=== PATIENT | female | born 1965 | race Caucasian/White ===

== ENCOUNTER 2016-09-23 14:46 | Inpatient (IN) | payer OTHER ==
[2016-09-23] MEDS ORDERED: DOPamine INJ PREMIX 500 ML IV SCH (18:00)
[2016-09-23 18:13] LABS: AUTOMATED NEUTROPHIL # 10.6 TH/MM3 (1.8-7.7); BASOPHIL % 0.1 % (0.0-2.0); EOSINOPHIL % 0.2 % (0.0-4.0); HEMATOCRIT 26.7 % (35.0-46.0); HEMO FLAGS DIFF FINAL; LYMPH % 16.5 % (9.0-44.0); LYMPHOCYTE # 2.4 TH/MM3 (1.0-4.8); MEAN CELL VOLUME 85.3 FL (80.0-100.0); MEAN CORPUSCULAR HEMOGLOBIN 28.2 PG (27.0-34.0); MONO % 9.2 % (0.0-8.0); PLATELET COUNT 163 TH/MM3 (150-450); RED BLOOD COUNT 3.13 MIL/MM3 (4.00-5.30); RED CELL DISTRIBUTION WIDTH 17.9 % (11.6-17.2); WHITE BLOOD COUNT 14.3 TH/MM3 (4.0-11.0)
[2016-09-23 18:16] LABS: BLOOD, URINE SMALL (NEG); GLUCOSE,URINE 1000 mg/dL (NEG); KETONE, URINE NEG (NEG); MUCUS URINE FEW /lpf (OCC); NITRITE,URINE NEG (NEG); SQUAMOUS EPITHELIAL CELL URINE 1 /hpf (0-5); URINE COLOR YELLOW (YELLW/STRAW)
[2016-09-23 18:17] LABS: COMMENT (UR) CATH-CULTURE IND; CULTURE IF INDICATED CATH CULTURE IND
[2016-09-23 18:21] LABS: APTT (PATIENT) 30.6 SEC (24.3-30.1); INTERNATIONAL NORMALIZED RATIO 1.2 RATIO
[2016-09-23 18:37] LABS: ANION GAP 7 MEQ/L (5-15)
--- NOTE | 2016-09-23 18:53 | RADRPT ---
EXAM DATE/TIME: 09/23/2016 18:17 [place] COMPARISON: No previous studies available for comparison. INDICATIONS : Organ donor CXR. MEDICAL HISTORY : None. SURGICAL HISTORY : None. ENCOUNTER: Initial ACUITY: 1 day PAIN SCORE: Non-responsive. LOCATION: chest FINDINGS: A single view of the chest demonstrates right chest tube in place with moderate size right pneumothor ax. Left chest tube also present. Bilateral mostly basilar airspace consolidation. Endotracheal tube in satisfactory position. Left central line in superior vena cava. CONCLUSION: 1. Bilateral chest tubes. Moderate right pneumothorax. Bilateral mostly basilar lung consolidation. Isael Morgan MD on September 23, 2016 at 18:49 Board Certified Radiologist. This report was verified electronically.
[2016-09-23 18:54] LABS: ALKALINE PHOSPHATASE 108 U/L (45-117); ALT (GPT) 60 U/L (10-53); AMYLASE 110 U/L (25-115); AST (GOT) 101 U/L (15-37); BICARBONATE 22.2 MEQ/L (21.0-32.0); BLOOD UREA NITROGEN 25 MG/DL (7-18); CHLORIDE 119 MEQ/L (98-107); GAMMA GT 122 U/L (5-55); GLOMERULAR FILTRATION RATE 46 ML/MIN (>89); INDIRECT BILIRUBIN 0.3 MG/DL (0.0-0.8); MAGNESIUM 1.3 MG/DL (1.5-2.5); POTASSIUM 3.8 MEQ/L (3.5-5.1); SODIUM (NA) 148 MEQ/L (136-145); TOTAL BILIRUBIN ADULT 0.6 MG/DL (0.2-1.0)
[2016-09-23 18:55] LABS: CALCIUM-PROTEIN CORRECTED 7.8 MG/DL (8.5-10.1)
[2016-09-23] MEDS: CEFEPIME 1000 MG/NS 100 ML IV SCH ×4 (19:12→23:40)
[2016-09-23 19:13] LABS: CKMB 19.5 NG/ML (0.5-3.6)
[2016-09-23] MEDS ORDERED: DEXTROSE 50% IN WATER 50 ML VIAL(D50) IV PUSH PRN (19:30)
[2016-09-23] MEDS ORDERED: DEXTROSE 50% IN WATER 50 ML VIAL(D50) IV SCH (19:30)
[2016-09-23] MEDS ORDERED: INSULIN HUMAN REGULAR 1,000 UNITS/10 ML VIAL IV PUSH SCH (19:30)
[2016-09-23] MEDS ORDERED: methylPREDNISolone SO SUCC INJ 2,000 MG in DEXTROSE 5% IN WATER INJ 250 ML IV ONE ×2 (19:30)
[2016-09-23] MEDS: EPINEPHrine (1:1000) INJ 2 MG in SODIUM CHLOR 0.9% 250 ML INJ 250 ML IV SCH (19:31)
[2016-09-23] MEDS: INSULIN REGULAR 100 UNITS/100 ML NS INDIVIDUALIZED ALG IV SCH ×2 (19:32)
[2016-09-23] MEDS: LEVOTHYROXINE 400 MCG/NS 500 ML IV SCH ×2 (19:45)
[2016-09-23] MEDS ORDERED: VASOPRESSIN 80 U/NS 100 ML Titrate per Translife Protocol IV SCH ×2 (20:00)
[2016-09-23] MEDS ORDERED: NOREPINEPHRINE INJ 4 MG in SODIUM CHLOR 0.9% 250 ML INJ 246 ML IV SCH (20:00)
[2016-09-23] MEDS ORDERED: LEVOTHYROXINE SODIUM 100 MCG VIAL IV PUSH ONE (20:00)
[2016-09-23] MEDS: CLINDAMYCIN 900 MG in NS 100 ML IV SCH (20:00)
[2016-09-23 20:37] VITALS: O2SAT 94
[2016-09-23] MEDS: RESP: ALBUTEROL 2.5 MG/3 ML NEB (SCH) NEB ×2 (20:37→23:30)
[2016-09-23] MEDS: 1/2 NS + KCL 20 MEQ INJ 1,000 ML IV SCH (21:00)
[2016-09-23] MEDS ORDERED: ALBUMIN HUMAN 25% 25 GM/100 ML BAGP IV SCH (23:15)
[2016-09-23] MEDS ORDERED: FUROSEMIDE 20 MG/2 ML VIAL IV PUSH SCH (23:15)
[2016-09-23] MEDS ORDERED: CALCIUM GLUCONATE INJ 1 GM in SODIUM CHLORIDE 0.9% INJ 100 ML IV SCH (23:15)
[2016-09-23 23:30] VITALS: O2SAT 100
[2016-09-24 00:23] LABS: BLOOD GAS BASE EXCESS -7.5 mmol/L (-2-2); BLOOD GAS CARBOXYHEMOGLOBIN 1.7 % (0-4); BLOOD GAS HCO3 18 mmol/L (22-26); BLOOD GAS METHEMOGLOBIN 0.9 % (0-2); BLOOD GAS O2 HGB SATURATION 97 % (90-100); BLOOD GAS OXYGEN CONTENT 12.2 Vol % (12.0-20.0); BLOOD GAS PCO2 42 mmHg (38-42); BLOOD GAS PO2 156 mmHg (61-120); BLOOD GAS TOTAL HGB 8.7 G/DL (12.0-16.0); CRITICAL VALUE YES; DRAW SITE ALINE; FIO2 60 %; OXYGEN DEVICE VENTILATOR; STAT YES; TEMP CORR TO 98.6; ULNAR PULSE PRESENT; VENT SETTINGS PRVC/22/520/1.0/+5
[2016-09-24] MEDS ORDERED: SODIUM BICARBONATE 8.4% SOLN 50 MEQ/50 ML VIAL IV SCH (00:45)
[2016-09-24] MEDS ORDERED: FUROSEMIDE 20 MG/2 ML VIAL IV PUSH PRN (00:45)
[2016-09-24] MEDS: CLINDAMYCIN 900 MG in NS 100 ML IV SCH ×4 (02:00→19:36)
[2016-09-24] MEDS: DEXTROSE 5% IV SCH ×6 (03:42→20:00)
[2016-09-24] MEDS: METHYLPREDNISOLONE SO SUCC IV SCH ×6 (03:42→20:00)
[2016-09-24] MEDS: WATER IV SCH ×6 (03:42→20:00)
[2016-09-24] MEDS ORDERED: ACETAMINOPHEN 1000 MG/100 ML VIAL IV ONE ×2 (04:30→04:45)
[2016-09-24 04:33] VITALS: O2SAT 100
[2016-09-24] MEDS: RESP: ALBUTEROL 2.5 MG/3 ML NEB (SCH) NEB ×4 (04:33→19:57)
[2016-09-24] MEDS: 1/2 NS + KCL 20 MEQ INJ 1,000 ML IV SCH ×2 (04:38→17:17)
[2016-09-24 04:39] LABS: AUTOMATED NEUTROPHIL # 14.3 TH/MM3 (1.8-7.7); BASOPHIL % 0.1 % (0.0-2.0); HEMATOCRIT 33.5 % (35.0-46.0); HEMO FLAGS DIFF FINAL; LYMPH % 6.3 % (9.0-44.0); MEAN CELL VOLUME 83.7 FL (80.0-100.0); MEAN CORPUSCULAR HEMOGLOBIN 28.4 PG (27.0-34.0); MONO % 4.4 % (0.0-8.0); NEUT % 89.2 % (16.0-70.0); PLATELET COUNT 153 TH/MM3 (150-450); RED CELL DISTRIBUTION WIDTH 17.6 % (11.6-17.2); WHITE BLOOD COUNT 16.1 TH/MM3 (4.0-11.0)
[2016-09-24] MEDS: EPINEPHrine (1:1000) INJ 2 MG in SODIUM CHLOR 0.9% 250 ML INJ 250 ML IV SCH ×2 (04:39→15:47)
[2016-09-24 04:47] LABS: BLOOD, URINE TRACE (NEG); COMMENT (UR) CATH-CULTURE IND; CULTURE IF INDICATED CATH CULTURE IND; GLUCOSE,URINE NEG (NEG); KETONE, URINE NEG (NEG); MUCUS URINE FEW /lpf (OCC); NITRITE,URINE NEG (NEG); SQUAMOUS EPITHELIAL CELL URINE 1 /hpf (0-5); URINE COLOR YELLOW (YELLW/STRAW)
[2016-09-24] MEDS: CEFEPIME 1000 MG/NS 100 ML IV SCH ×6 (05:07→17:17)
[2016-09-24 05:10] LABS: BICARBONATE 23.5 MEQ/L (21.0-32.0); MAGNESIUM 1.2 MG/DL (1.5-2.5); POTASSIUM 4.9 MEQ/L (3.5-5.1); TOTAL BILIRUBIN ADULT 1.9 MG/DL (0.2-1.0)
[2016-09-24 05:14] LABS: CALCIUM-PROTEIN CORRECTED 7.3 MG/DL (8.5-10.1)
[2016-09-24] MEDS ORDERED: CALCIUM CHLORIDE INJ 2 GM in SODIUM CHLORIDE 0.9% INJ 100 ML IV SCH (05:45)
[2016-09-24] MEDS ORDERED: MAGNESIUM SULFATE INJ 2 GM in SODIUM CHLORIDE 0.9% INJ 100 ML IV SCH (05:45)
[2016-09-24] MEDS: INSULIN REGULAR 100 UNITS/100 ML NS INDIVIDUALIZED ALG IV SCH ×4 (08:18→17:18)
[2016-09-24 09:28] LABS: BLOOD GAS BASE EXCESS -7.5 mmol/L (-2-2); BLOOD GAS CARBOXYHEMOGLOBIN 1.4 % (0-4); BLOOD GAS HCO3 18 mmol/L (22-26); BLOOD GAS O2 HGB SATURATION 96 % (90-100); BLOOD GAS OXYGEN CONTENT 14.6 Vol % (12.0-20.0); BLOOD GAS PCO2 37 mmHg (38-42); BLOOD GAS PO2 129 mmHg (61-120); BLOOD GAS TOTAL HGB 10.6 G/DL (12.0-16.0); CRITICAL VALUE NO; DRAW SITE ART LINE; FIO2 60 %; OXYGEN DEVICE VENTILATOR; STAT YES; TEMP CORR TO 98.6; VENT SETTINGS 520/22/0.85/+5
[2016-09-24 09:59] LABS: HEMOGLOBIN A1a 1.4 %; HEMOGLOBIN A1b 1.1 %; HEMOGLOBIN Ao 77.6 %; HEMOGLOBIN F 1.7 %; HEMOGLOBIN LA1C 3.9 %; HEMOGLOBIN P3 5.9 %
[2016-09-24] MEDS ORDERED: SODIUM BICARBONATE 8.4% INJ 50 ML ONE (10:31)
[2016-09-24] MEDS ORDERED: SODIUM BICARBONATE 8.4% SOLN 50 MEQ/50 ML VIAL IV ONE ×2 (11:00→12:30)
--- NOTE | 2016-09-24 11:46 | EKG ---
Date Performed: 09/23/2016 Time Performed: 18:24:00 PTAGE: 51 years EKG: Sinus tachycardia with borderline 1st degree A-V block Left axis deviation Left bundle bran ch block Possible lateral infarct - age undetermined Abnormal ECG NO PREVIOUS TRACING DOCTOR: Sandra Azevedo Interpretating Date/Time 09/24/2016 11:45:17
[2016-09-24 12:00] LABS: BLOOD GAS BASE EXCESS -7.5 mmol/L (-2-2); BLOOD GAS CARBOXYHEMOGLOBIN 1.2 % (0-4); BLOOD GAS HCO3 17 mmol/L (22-26); BLOOD GAS METHEMOGLOBIN 0.8 % (0-2); BLOOD GAS O2 HGB SATURATION 98 % (90-100); BLOOD GAS OXYGEN CONTENT 14.1 Vol % (12.0-20.0); BLOOD GAS PCO2 32 mmHg (38-42); BLOOD GAS PO2 288 mmHg (61-120); BLOOD GAS TOTAL HGB 9.7 G/DL (12.0-16.0); CRITICAL VALUE NO; DRAW SITE ART LINE; FIO2 100 %; OXYGEN DEVICE VENTILATOR; TEMP CORR TO 98.6; VENT SETTINGS 520/22/+5/0.85IT
[2016-09-24] MEDS ORDERED: HEPARIN SODIUM - IV 10,000 UNITS/10 ML VIAL IV ONE (12:00)
[2016-09-24 12:01] LABS: STAT YES
[2016-09-24] MEDS ORDERED: FUROSEMIDE 20 MG/2 ML VIAL IV PUSH ONE (12:30)
[2016-09-24] MEDS ORDERED: SODIUM CHLOR 0.9% 1000 ML INJ 1,000 ML IV ONE (13:15)
[2016-09-24 13:29] LABS: BLOOD GAS BASE EXCESS -2.1 mmol/L (-2-2); BLOOD GAS CARBOXYHEMOGLOBIN 1.2 % (0-4); BLOOD GAS HCO3 22 mmol/L (22-26); BLOOD GAS METHEMOGLOBIN 1.1 % (0-2); BLOOD GAS O2 HGB SATURATION 97 % (90-100); BLOOD GAS OXYGEN CONTENT 15.7 Vol % (12.0-20.0); BLOOD GAS PCO2 40 mmHg (38-42); BLOOD GAS PO2 234 mmHg (61-120); BLOOD GAS TOTAL HGB 11.1 G/DL (12.0-16.0); CRITICAL VALUE NO; OXYGEN DEVICE VENTILATOR; TEMP CORR TO 98.6
[2016-09-24 13:30] LABS: DRAW SITE ART LINE; FIO2 100 %; STAT YES; VENT SETTINGS 520/20/+5/IT0.85
[2016-09-24 14:04] LABS: ALKALINE PHOSPHATASE 106 U/L (45-117); ALT (GPT) 47 U/L (10-53); ANION GAP 10 MEQ/L (5-15); AST (GOT) 137 U/L (15-37); BICARBONATE 27.2 MEQ/L (21.0-32.0); BLOOD UREA NITROGEN 22 MG/DL (7-18); CHLORIDE 114 MEQ/L (98-107); GLOMERULAR FILTRATION RATE 63 ML/MIN (>89); POTASSIUM 4.4 MEQ/L (3.5-5.1); SODIUM (NA) 151 MEQ/L (136-145); TOTAL BILIRUBIN ADULT 1.6 MG/DL (0.2-1.0)
[2016-09-24 14:05] LABS: BLOOD GAS BASE EXCESS -2.1 mmol/L (-2-2); BLOOD GAS CARBOXYHEMOGLOBIN 1.1 % (0-4); BLOOD GAS HCO3 25 mmol/L (22-26); BLOOD GAS O2 HGB SATURATION 73 % (90-100); BLOOD GAS OXYGEN CONTENT 11.9 Vol % (12.0-20.0); BLOOD GAS PCO2 63 mmHg (38-42); BLOOD GAS PO2 47 mmHg (61-120); BLOOD GAS TOTAL HGB 11.5 G/DL (12.0-16.0); TEMP CORR TO 98.6
[2016-09-24 14:06] LABS: CRITICAL VALUE YES; OXYGEN DEVICE VENTILATOR
[2016-09-24 14:09] LABS: DRAW SITE ART LINE; FIO2 100 %; STAT YES; VENT SETTINGS AC/20/520/IT0.85/+5
[2016-09-24] MEDS: LEVOTHYROXINE 400 MCG/NS 500 ML IV SCH ×2 (17:32)
[2016-09-24 18:54] LABS: BLOOD, URINE NEG (NEG); COMMENT (UR) CULT NOT INDICATED; CULTURE IF INDICATED CULT NOT INDICATED; GLUCOSE,URINE NEG (NEG); GRANULAR CAST, URINE 1 /lpf; HYALINE CAST, URINE 54 /lpf (RARE); KETONE, URINE NEG (NEG); MUCUS URINE FEW /lpf (OCC); NITRITE,URINE NEG (NEG); SQUAMOUS EPITHELIAL CELL URINE <1 /hpf (0-5); URINE COLOR YELLOW (YELLW/STRAW)
[2016-09-24 19:57] VITALS: O2SAT 100
== END 2016-09-24 23:52 | disposition expired | DRG 951 ==
LOC: N03B 14:46
DX: Z52.89 Donor of other specified organs or tissues (principal)
CPT/HCPCS: 36430; 71010; 80048; 80053; 80076; 81001; 82150; 82330; 82550; 82552; 82805; 82948; 82977; 83036; 83690; 83735; 84100; 84155; 84484; 85025; 85610; 85730; 86850; 86920; 87040; 87070; 87086; 87205; 93005; 94640; 94664; J0131; J0171; J0610; J0692; J1644; J1815; J1817; J1940; J2930; J3475; J7030; J7040; J7050; J7060; J7613; P9016; P9047